=== PATIENT | female | born 1965 | race Caucasian/White ===

== ENCOUNTER 2017-01-13 17:00 | Inpatient (IN) | payer BC ==
[2017-01-20] MEDS ORDERED: RINGERS SOLUTION,LACTATED 1,000 ML IV PRN (13:09)
[2017-01-20] MEDS ORDERED: TRAMADOL HCL 50 MG TABLET PO PRN (13:15)
[2017-01-20] MEDS ORDERED: MAGNESIUM HYDROXIDE 30 ML UDC PO PRN (13:15)
[2017-01-20] MEDS ORDERED: METOCLOPRAMIDE HCL 10 MG/2 ML VIAL IVP PRN (13:15)
[2017-01-20] MEDS ORDERED: DIPHENHYDRAMINE HCL 25 MG CAPSULE PO PRN (13:15)
[2017-01-20] MEDS ORDERED: OXYCODONE HCL 5 MG TABLET PO PRN ×2 (13:15)
[2017-01-20] MEDS ORDERED: AL HYDROX/MAG HYDROX 30ML UD PO PRN (13:15)
[2017-01-20] MEDS ORDERED: HYDROMORPHONE HCL 1 MG/ML CPJ IVP PRN (13:15)
[2017-01-20] MEDS ORDERED: ZOLPIDEM TARTRATE 5 MG TABLET PO PRN (13:15)
[2017-01-20] MEDS ORDERED: SENNOSIDES/DOCUSATE SODIUM UD CAPSULE PO PRN (13:15)
[2017-01-20] MEDS ORDERED: GUAIFENESIN 600 MG TABCR PO PRN (13:23)
[2017-01-20] MEDS: RINGERS SOLUTION,LACTATED 1,000 ML IV SCH (13:27)
[2017-01-20] MEDS ORDERED: ALKA SELTZER MC PRN (13:33)
[2017-01-20] MEDS ORDERED: SINEX MC PRN (13:34)
[2017-01-20] MEDS ORDERED: METOCLOPRAMIDE 10 MG TABLET PO ONE (14:18)
[2017-01-20] MEDS ORDERED: MECLIZINE 25 MG TABLET PO ONE (14:18)
[2017-01-20] MEDS ORDERED: CEFAZOLIN 2 Gram 2 GM/50 ML BAG IVPB ONE (14:18)
[2017-01-20] MEDS ORDERED: HYDROMORPHONE HCL 2 MG/ML VIAL IV ONE ×2 (14:18→14:20)
[2017-01-20] MEDS ORDERED: MIDAZOLAM HCL 2MG/2ML VIAL IV ONE ×2 (14:18→14:20)
[2017-01-20] MEDS ORDERED: FAMOTIDINE 20MG TABLET PO ONE (14:18)
[2017-01-20] MEDS ORDERED: ACETAMINOPHEN 1,000 MG/100 ML BTL IV ONE (14:18)
[2017-01-20] MEDS ORDERED: FENTANYL PF 0.25MG/5ML AMPUL IV ONE (14:20)
[2017-01-20] MEDS ORDERED: PROPOFOL 10 MG/ML VIAL IV ONE (14:20)
[2017-01-20] MEDS ORDERED: ONDANSETRON HCL IV 4 MG/2 ML VIAL IVP ONE (14:20)
[2017-01-20] MEDS ORDERED: KETOROLAC 30 MG/ML VIAL IVP ONE (14:20)
[2017-01-20] MEDS ORDERED: GLYCOPYRROLATE 0.2 MG/ML ML IV ONE (14:20)
[2017-01-20] MEDS ORDERED: SEVOFLURANE 250 ML INH ONE (14:20)
[2017-01-20] MEDS ORDERED: LIDOCAINE 2% MDV (20MG/ML) 20ML VIAL IV ONE (14:20)
[2017-01-20] MEDS ORDERED: NEOSTIGMINE 1 MG/1 ML,10ML VIAL IV ONE (14:20)
[2017-01-20] MEDS ORDERED: ROCURONIUM BROMIDE 50MG/5ML VIAL IV ONE (14:20)
[2017-01-20] MEDS: FONDAPARINUX 2.5 MG/0.5 ML SYR SQ SCH (15:51)
[2017-01-20] MEDS: ACETAMINOPHEN 1,000 MG/100 ML BTL IV SCH ×2 (15:51→21:58)
[2017-01-20] MEDS: ONDANSETRON HCL IV 4 MG/2 ML VIAL IVP PRN ×2 (15:57→23:20)
[2017-01-20] MEDS: CLINDAMYCIN 600MG/50ML PREMIX 600 MG/50 ML BAG IVPB SCH (18:29)
--- NOTE | 2017-01-20 19:35 | Rehab Evaluation ---
Patient Information - Patient Information Diagnosis: L HIP OA Ordered Treatment: PT Evaluate and Treat Status: Initial Evaluation Surgery: Yes (L ROBBIE) Date of Surgery: 01/20/17 History: Detail (Pt. reports history of degenerative changes at the left hip.) Past Med/Najma Hx Detail: Detail (See additional history forms.) Past Medical/Surgical Hx: PAST MEDICAL/SURGICAL HISTORY Past Surgical History Appendectomy Tonsillectomy Cataract PMH - Respiratory Hx Respiratory Disorders Yes Hx Bronchitis Yes Hx Pneumonia Yes PMH - Cardiovascular Hx Cardiovascular Disorders Yes Hx Heart Murmur Yes Exercise Tolerance Good PMH - Neuro Hx Neurological Disorders No PMH - GI Hx Gastrointestinal Disorders No PMH - Hx Genitourinary Disorders Yes Patient No Hx Bladder Problem Yes: TROUBLE EMTYING BLADDER FULLY Comment: States doesn't empty bladder when urinating PMH - Endocrine Hx Endocrine Disorders No PMH - Musculoskeletal Hx Musculoskeletal Disorders Yes Hx Arthritis Yes PMH - Psych Hx Psychiatric Problems Yes Hx Anxiety Yes Comment: hx panic attacks PMH - Hematology/Oncology Hx Hematology/Oncology No Disorders Premorbid Status: Detail (Slowly progressive worsening of sx.) Social History: Detail (Pt. lives in a single story home with 2 steps leading into the home and hand rails on both sides. Pt. has a standard tub with shower chair, raised toilet seat, but the shower does not have grab bars. Pt. is scheduled for OP PT at [facility] following inpatient stay. Pt. lives at home with her who is able to provide support.) Precautions: [place], Fall - Time With Patient Total Time Spent With Patient (Min): 55 Treatment Procedures: Detail (Physical therapy evaluation completed. Pt. was left supine with call light available, B IPC, nursing was notified of pt.'s status.) Subjective Information - Subjective Information Per Patient (Pt. initially denied nausea/SOB, but did become nauseated after bedside transfer.) Objective Data - Pain Pain Present: Yes Pain Intensity: 4 Pain Scale Used: Numeric (1 - 10) - Mental Status Patient Orientation: Oriented x3 - Visual Perception Appears within normal limits for therapeutic activities - ROM Not within normal limits (L hip active ROM not assessed for internal rotation, adduction, or flexion past 90 degrees secondary to hip protocol. B knee and ankles WFL all planes of movement. R hip WFL all planes of movement.) - Strength/Tone Not within normal limits (Break testing at the left hip not assessed due to surgery. B knees, ankles, and right hip well within functional limits during transfers and bed mobility.) - Coordination Appears within normal limits for therapeutic activities - Bed Mobility Needs Assist (Pt. required assistance when transferring the operative LE to not break hip precautions.) - Transfers Needs Assist (Pt. required min assist x1 with stand to sit and sit to stand transfer.) - Balance Balance Sitting: Fair Balance Standing: Fair - Sensation Intact - Gait Detail (Not assessed due to standing at bedside orders.) - ADL's/IADL's Detail (Pt. was unsuccessful with void attempt.) - Special Tests No Therapy Assessment - Therapy Assessment Detail (LE weakness, ROM restriction, and balance impairment secondary to L ROBBIE. ) Patient Education - Patient Education Teaching Topic: Community Resources, Coping Skills Response: Return Demonstration Teaching Method: Discussion Teaching Recipient: Patient Barriers To Learning: None Problem List - Problem List Physical Therapy Problem List: Detail (1) LE weakness 2) LE ROM restriction 3) Balance impairment 4) Inability to assess ambulation) Goals - Goals Physical Therapy Goals: 1) Pt. will ambulate household distances with AD and not exhibit deviation from midline for safe and efficient ambulation. 2) Pt. will I ascend and descend 2 steps with AD and demonstrate proper positioning of the AD for safe stair use. 3) Pt. will accurately verbalize hip precautions. 4 ) Pt. will be independent with the HEP. 5) Pt. will be independent with bed mobility and transfers. Prognosis - Prognosis Good (Pt. is a good candidate to complete goals set during inpatient PT.) Plan - Plan Physical Therapy Plan: Pt. is to be seen 1-2x per day for inpatient physical therapy until goals met.
[2017-01-21] MEDS: TRAMADOL HCL 50 MG TABLET PO PRN ×2 (00:42→06:15)
[2017-01-21] MEDS: CLINDAMYCIN 600MG/50ML PREMIX 600 MG/50 ML BAG IVPB SCH ×2 (01:33→10:24)
[2017-01-21] MEDS: ACETAMINOPHEN 1,000 MG/100 ML BTL IV SCH (04:03)
[2017-01-21] MEDS ORDERED: ACETAMINOPHEN 1,000 MG/100 ML BTL IV ONE (06:00)
[2017-01-21] MEDS ORDERED: CLINDAMYCIN 600MG/50ML PREMIX 600 MG/50 ML BAG IVPB ONE (06:00)
[2017-01-21] MEDS ORDERED: FAMOTIDINE 20MG TABLET PO ONE (06:00)
[2017-01-21] MEDS ORDERED: MECLIZINE 25 MG TABLET PO ONE (06:00)
[2017-01-21] MEDS ORDERED: METOCLOPRAMIDE 10 MG TABLET PO ONE (06:00)
[2017-01-21 06:36] LABS: HEMATOCRIT 29.4 % (35.0-47.0); MEAN CELL VOLUME 100.7 fl (81-97); MEAN PLATELET VOLUME 9.6 fl (7.4-10.4); PLATELET COUNT 249 K/uL (130-400); RED BLOOD COUNT 2.92 M/uL (3.80-5.40); RED CELL DISTRIBUTION WIDTH 12.6 % (11.5-14.5); WHITE BLOOD COUNT W/O DIFF 15.8 K/uL (4.2-12.2)
[2017-01-21 06:56] LABS: HEMOGLOBIN 9.4 gm/dl (11.6-16.0); MEAN CORPUSCULAR HEMOGLOBIN 32.1 pg (27-33)
--- NOTE | 2017-01-21 07:20 | RADIOLOGY REPORT ---
EXAM: LEFT HIP HISTORY: POSTOP. TECHNIQUE: Two views of the left hip were obtained. Comparison: 11/16/16 pelvis and left hip. Encounter: Initial. FINDINGS: Status post total left hip arthroplasty. Surgical drain in place. Soft tissue gas and swelling is likely postoperative. IMPRESSION: LEFT HIP ARTHROPLASTY CHANGE. NO GROSS COMPLICATING PROCESS. JOB NUMBER: [id number] MTDD
[2017-01-21] MEDS: ONDANSETRON HCL IV 4 MG/2 ML VIAL IVP PRN (09:10)
[2017-01-21] MEDS ORDERED: PSEUDOEPHEDRINE 30 MG MC SCH (10:00)
[2017-01-21] MEDS ORDERED: CETIRIZINE 10 MG PO SCH (10:00)
--- NOTE | 2017-01-21 10:42 | Rehab Evaluation ---
Patient Information - Patient Information Diagnosis: L HIP OA Ordered Treatment: OT Evaluate and Treat Status: Initial Evaluation Surgery: Yes (L ROBBIE) Date of Surgery: 01/20/17 History: Detail (Pt. reports history of degenerative changes at the left hip.) Past Med/Najma Hx Detail: Detail (See additional history forms.) Past Medical/Surgical Hx: PAST MEDICAL/SURGICAL HISTORY Past Surgical History Appendectomy Tonsillectomy Cataract PMH - Respiratory Hx Respiratory Disorders Yes Hx Bronchitis Yes Hx Pneumonia Yes PMH - Cardiovascular Hx Cardiovascular Disorders Yes Hx Heart Murmur Yes Exercise Tolerance Good PMH - Neuro Hx Neurological Disorders No PMH - GI Hx Gastrointestinal Disorders No PMH - Hx Genitourinary Disorders Yes Patient No Hx Bladder Problem Yes: TROUBLE EMTYING BLADDER FULLY Comment: States doesn't empty bladder when urinating PMH - Endocrine Hx Endocrine Disorders No PMH - Musculoskeletal Hx Musculoskeletal Disorders Yes Hx Arthritis Yes PMH - Psych Hx Psychiatric Problems Yes Hx Anxiety Yes Comment: hx panic attacks PMH - Hematology/Oncology Hx Hematology/Oncology No Disorders Premorbid Status: Detail (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 lives in a single story home with 2 steps leading into the home and hand rails on both sides. Pt. has a standard tub with shower chair, raised toilet seat, but the shower does not have grab bars. Curtain enclosure around tub. Pt. is scheduled for OP PT at [facility] following inpatient stay. Pt. lives at home with her who is able to provide support. Spouse will be home with patient during recovery and will be completing meal prep.) Precautions: [employer], Fall - Time With Patient Total Time Spent With Patient (Min): 30 Treatment Procedures: Detail (OT eval LOW) Subjective Information - Subjective Information Per Patient Objective Data - Pain Pain Present: Yes Pain Intensity: 4 Pain Scale Used: Numeric (1 - 10) - Mental Status Patient Orientation: Oriented x3 - Visual Perception Appears within normal limits for therapeutic activities (Wears glasses) - ROM Within normal limits (BUE's) - Strength/Tone Within normal limits (BUE's) - Coordination Appears within normal limits for therapeutic activities - Bed Mobility Needs Assist (Min A with LLE management off/on bed when moving supine<>SS EOB.) - Transfers Independent (Sit<>stand) - ADL's/IADL's Detail (Pt instructed on and demo'd understanding of ADL equipment use. She demonstrates safety with adherence to hip precautions when completing LB drsg. Pt already owns a lead data architect, LH sponge, and sock aid and states spouse will assist with any other needs. She will be wearing slip on shoes. Pt taught technique for underwear & pants don while maintaining hip precautions and demo' d independence. Pt c/o nausea throughout visit but willing to participate.) Therapy Assessment - Therapy Assessment Detail (Pt demo'd understanding and independence with ADL equipment while maintaining hip precautions.) Patient Education - Patient Education Teaching Topic: Equipment Use Response: Return Demonstration Teaching Method: Discussion, Demonstration Teaching Recipient: Patient Barriers To Learning: None Problem List - Problem List Physical Therapy Problem List: Detail (1) LE weakness 2) LE ROM restriction 3) Balance impairment 4) Inability to assess ambulation) Goals - Goals Physical Therapy Goals: 1) Pt. will ambulate household distances with AD and not exhibit deviation from midline for safe and efficient ambulation. 2) Pt. will I ascend and descend 2 steps with AD and demonstrate proper positioning of the AD for safe stair use. 3) Pt. will accurately verbalize hip precautions. 4 ) Pt. will be independent with the HEP. 5) Pt. will be independent with bed mobility and transfers. Prognosis - Prognosis Good Plan - Plan Physical Therapy Plan: Pt. is to be seen 1-2x per day for inpatient physical therapy until goals met. Occupational Therapy Plan: No further inpatient OT needed at this time.
--- NOTE | 2017-01-21 11:47 | Physical Therapy Tx Note ---
Physical Therapy Tx Note - Treatment Note Tolerated: Good Total Time Spent With Patient: 45 Physical Therapy Tx Note: Detail (Pt in bed upon arrival, drowsy, somewhat nauseated. Has been up w/nrsg to bathroom, sat up for breakfast. Performed 10 reps each of ankle pumps, quadricep isometrics, hamstring isometrics, gluteal isometrics, and heel slides B. Transferred supine to sit w/mod assist for L LE, using overhead trapeze and scooting. Sat at edge of bed for several minutes, nauseated. Sit/stand to front-wheeled walker w/CGA, reviewed gait technique, ambulated from bedside out to hallway, in hallway, back to bathroom, and back to bed (about 70 feet) w/CGA. Sit/stand transfers at toilet w/CGA. Had emesis while in bathroom, independent w/washing hands and managing clothing for toileting. SBA for balance. [place] dizzy/lightheaded after toileting, but was able to rest in standing then resumed walking back to bed. Mod assist for L LE for getting into bed, independently scooted/positioned w/use of trapeze. Provided pt w/fresh ice water and new emesis bags. Left up in bed w/call light in reach; nrsg notified.) Physical Therapy Problem List: Detail (1) LE weakness 2) LE ROM restriction 3) Balance impairment 4) Inability to assess ambulation) Physical Therapy Goals: 1) Pt. will ambulate household distances with AD and not exhibit deviation from midline for safe and efficient ambulation. 2) Pt. will I ascend and descend 2 steps with AD and demonstrate proper positioning of the AD for safe stair use. 3) Pt. will accurately verbalize hip precautions. 4 ) Pt. will be independent with the HEP. 5) Pt. will be independent with bed mobility and transfers. Prognosis: Good Physical Therapy Plan: Pt. is to be seen 1-2x per day for inpatient physical therapy until goals met.
[2017-01-21] MEDS ORDERED: ACETAMINOPHEN 325 MG TAB PO PRN (13:15)
[2017-01-21] MEDS ORDERED: OXYCODONE/APAP 7.5MG/325MG TABLET PO PRN ×2 (13:15)
[2017-01-21] MEDS ORDERED: HYDROCODONE/APAP 7.5/325MG TABLET PO PRN ×2 (13:15)
[2017-01-21] MEDS: RINGERS SOLUTION,LACTATED 1,000 ML IV SCH (13:18)
--- NOTE | 2017-01-21 14:47 | Physical Therapy Tx Note ---
Physical Therapy Tx Note - Treatment Note Tolerated: Good Total Time Spent With Patient: 20 Physical Therapy Tx Note: Detail (The patient was in bed when PT arrived. The patient acheived supine to sit with minimal PA to lift L LE. The patient was independent with sit to and from stand transfer. The patient ambulated 30 feet independently WBAT on the L LE with wheeled walker. The patient ambulated on 3 steps with folded walker and 1 railing with supervision for safety only. The patient did well with mobility. The patient was nauseated when ambulated and moved slow. The patient reports her will be present to assist with lifting her L LE with supine to sit if she requires assistance. The patient's HEP was reviewed.) Physical Therapy Problem List: Detail (1) LE weakness 2) LE ROM restriction 3) Balance impairment 4) Inability to assess ambulation) Physical Therapy Goals: 1) Pt. will ambulate household distances with AD and not exhibit deviation from midline for safe and efficient ambulation. 2) Pt. will I ascend and descend 2 steps with AD and demonstrate proper positioning of the AD for safe stair use. 3) Pt. will accurately verbalize hip precautions. 4 ) Pt. will be independent with the HEP. 5) Pt. will be independent with bed mobility and transfers. Physical Therapy Plan: The patient has met inpatient PT goals and is discharged from inpatient PT.
[2017-01-21] MEDS: FONDAPARINUX 2.5 MG/0.5 ML SYR SQ SCH (14:52)
--- NOTE | 2017-01-24 09:51 | Operative Note ---
DATE OF SURGERY: 01/20/2017 Surgeon: Christofer Sam DO PREOPERATIVE DIAGNOSIS: Primary osteoarthritis of the left hip. POSTOPERATIVE DIAGNOSIS: Primary osteoarthritis of the left hip. OPERATION: Left total hip arthroplasty. DESCRIPTION OF PROCEDURE: This 51-year-old female was taken to the operating room, placed in the supine position on the operating room table where general anesthesia was induced. The patient was then placed in the right lateral decubitus position. All bony prominences well padded and well secured. The left hip was then prepped with Hibiclens and draped in the usual sterile fashion. All scrub personnel wore personal isolation suits. A lateral hip incision was made dissecting down through the skin and subcutaneous tissue. Hemostasis obtained with the electrocautery. Tensor was divided in line where the skin incision. Gluteus mallory was split. Short rotators identified and divided at the posterior aspect of the greater trochanter and capsulotomy was performed. We placed Hannah pins as retractors; one superiorly and one posterosuperiorly and one posteroinferiorly around the acetabulum. A yvette was made on the greater trochanter and this was measured to the proximal pin. Subsequently the hip was dislocated and the neck amputated and Cobra retractor was placed anteriorly in the acetabulum for excellent exposure of the acetabulum. We then debrided the labrum and soft tissue from the acetabulum and then began reaming with a size 44 mm reamer up to a size 48 to the base of the condyloid notch. Osteophytes were removed around the acetabulum. We then placed a trial acetabular liner and a size 48 was seen to be the appropriate size. Subsequently a 48 Trident cup was impacted into place with approximately 20 degrees of anteversion and 45 degrees of abduction. The trial liner was subsequently placed. We then directed our attention to the proximal femur and the box osteotome was used to cut the proximal femur and subsequently a handyperson was placed down the shaft of the femur and then using an alternating ream/broach technique, a size 6 broach was countersunk. Calcar reamer was used. This was followed by the insertion of the size 7 broach after reaming, and this was seated and used for trialing of the components. A 30 mm neck and a 32 mm head trial were used. This was reduced and the hip taken through range of motion with flexion to 100 degrees, internal rotation to about 75-80 degrees with no instability of the hip being identified. Wide abduction and external rotation also possible with no instability. The trial component were all then removed and X3 liner was impacted into place. This was followed by the insertion of the size 7 femoral component and a size 36 mm Biolox head +0 and the hip was then again reduced and excellent stability of the components identified. The wound was again copiously irrigated with pulse lavage, lactated Ringer's solution. All cloudy debris removed from the hip. We repaired the short rotators posteriorly through drill holes through the greater trochanter with a #5 Ethibond suture. Once this had been repaired, the drain was placed through a separate stab incision. The tensor was closed with #2 Vicryl, the subcutaneous tissue closed with 0 Vicryl, and the skin was stapled. Sterile dressings were applied and the patient taken to the recovery room in satisfactory condition. GROSS PATHOLOGY: This patient had full-thickness articular cartilage loss of the femoral head with small osteophytes present around the acetabulum. FINAL COMPONENTS: Hagan Secure Fit size 7 collared femoral component, a 48 mm Trident cup, and a 35 mm +0 Biolox head was used. CC: RENY Santana
--- NOTE | 2017-01-24 10:20 | Discharge Summary ---
DATE OF ADMISSION: 01/20/2017 DATE OF DISCHARGE: 01/21/2017 ADMISSION DIAGNOSIS: Osteoarthritis of the left hip. DISCHARGE DIAGNOSIS: Osteoarthritis of the left hip. OPERATIVE PROCEDURE: Left total hip arthroplasty. DESCRIPTION: This 51-year-old female was admitted to the hospital for elective total hip arthroplasty and tolerated the operative procedure well. She progressed satisfactorily with physical therapy and was ready for discharge. The x-rays showed satisfactory position and alignment of the prosthesis. The patient will wear her JULIANO hose during the day and remove them at night. She will have outpatient physical therapy. She was instructed to take aspirin 325 mg b.i.d. for 2 weeks. She was given a prescription for Ultram, #60, one or two every 6 hours as necessary for pain with 1 refill. She was also given a prescription for 60 Percocet 7.5/325 one or two every 6 hours as necessary for pain. Routine wound care instructions were given. She will follow up in my office in 2 weeks. Should she have any problems prior to being seen, she was instructed to call my office. JO
[2017-01-27] MEDS ORDERED: MELOXICAM 7.5 MG TABLET PO SCH (10:00)
== END 2017-01-21 15:03 | disposition home or self-care (01) | DRG 470 ==
LOC: MEDSURG 01-20 08:02
PROVIDERS: ADMIT Orthopaedic Surgery; ATTEND Orthopaedic Surgery
PROC: 0SRB04A Replacement of Left Hip Joint with Ceramic on Polyethylene Synthetic Substitute, Uncemented, Open Approach (ICD-10-PCS; principal; 2017-01-20 10:30)
DX: M16.12 Unilateral primary osteoarthritis, left hip (principal); F17.210 Nicotine dependence, cigarettes, uncomplicated
CPT/HCPCS: 85025; 94760; 97110; 97116; 97165; 97530; C1776; J1885; J2405; J2710; J7120